=== PATIENT | female | born 1955 | race Caucasian/White ===

== ENCOUNTER → 2016-09-11 | Outpatient (CLI) | payer BC ==
--- NOTE | 2016-09-11 09:19 | CT ---
EXAMINATION TYPE: CT sinus wo con DATE OF EXAM: 09/11/2016 7:05 AM COMPARISON: NONE HISTORY: Sinus blockage for about 2 years with facial pain per patient. Chronic sinusitis per order. CT DLP: 596.5 mGycm. Automated Exposure Control for Dose Reduction was Utilized. TECHNIQUE: CT scan of the sinuses is performed without contrast, axial images are obtained, coronal r eformatted images are also reviewed. FINDINGS there is mild to moderate mucosal thickening involving maxillary sinuses bilaterally. There is mild mucosal thickening involving anterior left sphenoid sinus. There is patchy web-like opacifica tion throughout the right sphenoid sinus . There is moderate mucosal thickening involving ethmoid sin uses bilaterally. There is mild mucosal thickening involving inferior frontal sinuses. The ostiomeata l complex is blocked bilaterally by antral mucosal thickening. Nasal septum is deviated to right of m idline along posterior inferior aspect. Visualized portion of mastoid air cells show no abnormal opacification. The globes are intact bilate rally. IMPRESSION: Fairly moderate chronic paranasal sinus disease as detailed above with narrowing or block ing of both ostiomeatal complexes noted, acute sinus disease right sphenoid sinus level is suspected.
== END | disposition home or self-care (01) ==
LOC: RADCTMAIN 06:45
PROVIDERS: ATTEND Otolaryngology
DX: J34.89 Other specified disorders of nose and nasal sinuses (principal)
CPT/HCPCS: 70486

== ENCOUNTER 2016-10-30 10:33 | Day surgery (SDC) | payer BC ==
[2016-10-29 08:34] VITALS: BMI 23.1
[~2016-10-30 10:33] MED LIST: DEXAMETHASONE SOD PHOSPHATE 10 MG/ML 1 ML VIAL IV ONE; DEXAMETHASONE SOD PHOSPHATE 4 MG/ML 1 ML VIAL IV ONE; FAMOTIDINE 20 MG/2 ML VIAL IV ONE; HYDROmorphone 1 MG/ML 1 ML SYRINGE IVP PRN; LACTATED RINGERS 1,000 ML IV SCH; MIDAZOLAM 2 MG/2 ML VIAL IV PRN; ONDANSETRON 4 MG/2 ML VIAL IVP ONE; SCOPOLAMINE 1.5MG/72HR PATCH TRANSDERM ONE; ceFAZolin 1,000 MG in DEXTROSE/WATER 1 50ML.BAG IV ONE
[2016-10-30] MEDS ORDERED: LIDOCAINE 1% 20 ML VIAL (10MG/ML) FOR IV START INTRADERMA ONE ×2 (10:50→10:56)
[2016-10-30] MEDS: OXYMETAZOLINE 0.05% NASL SPRAY 15 ML NASAL ONE ×6 (10:52→11:11)
[2016-10-30] MEDS ORDERED: DEXAMETHASONE SOD PHOS (MDV) 100 MG/10 ML VIAL ONE (12:57)
[2016-10-30] MEDS ORDERED: ROCURONIUM BROMIDE 10 MG/ML 10 ML VIAL IV ONE (12:57)
[2016-10-30] MEDS ORDERED: ePHEDrine 50 MG/ML 1 ML AMP ONE (12:57)
[2016-10-30] MEDS ORDERED: NEOSTIGMINE 1 MG/ML 10 ML VIAL ONE (12:57)
[2016-10-30] MEDS ORDERED: PHENYLEPHRINE-0.9% NACL SYG 1 MG/10 ML SYRINGE ONE (12:57)
[2016-10-30] MEDS ORDERED: LIDOCAINE 1% INJ 10MG/ML (20 ML MDV) ONE (12:57)
[2016-10-30] MEDS ORDERED: PROPOFOL 10 MG/ML 20 ML VIAL IV ONE (12:57)
[2016-10-30] MEDS ORDERED: GLYCOPYRROLATE 0.2 MG/ML 2 ML VIAL ONE (12:57)
[2016-10-30] MEDS ORDERED: MIDAZOLAM 2 MG/2 ML VIAL ONE (12:57)
[2016-10-30] MEDS ORDERED: fentaNYL (PF) 50 MCG/ML 2 ML AMP ONE (12:57)
[2016-10-30] MEDS ORDERED: BACITRACIN 500 UNIT/GM OINT 28.4 GM TUBE TOPICAL ONE (13:29)
[2016-10-30] MEDS ORDERED: LIDOCAINE 1%-EPI 1:100,000 20 ML VIAL SUBMUCOSAL ONE (13:29)
--- NOTE | 2016-10-30 14:13 | P.OP ---
Date of Procedure: 10/30/16 Preoperative Diagnosis: Deviated nasal septum Inferior turbinate hypertrophy Chronic sinusitis Postoperative Diagnosis: Same Procedure(s) Performed: Septoplasty Outfractured and submucous resection inferior turbinates Bilateral endoscopic sinus surgery including bilateral maxillary antrostomy with removal of tissue from exercise sinuses, bilateral anterior and posterior ethmoidectomy, balloon sinus plasty of the bilateral sphenoid and bilateral frontal sinuses Anesthesia: KENISHA Surgeon: Saud Santana Estimated Blood Loss (ml): 25 Pathology: other (Nasal septal bone and cartilage and sinus contents) Condition: stable Disposition: PACU Indications for Procedure: Is a 61-year-old white female whose had difficulties with chronic nasal congestion and nasal airway obstruction chronic postnasal drainage and recurrent sinus infections. Computed tomography scan does show diffuse mucosal thickening throughout the sinuses. Operative Findings: Septum is deviated to the right the inferior turbinates are hypertrophied, mucosal thickening in the ethmoid sinuses throughout. Mild thickening of the frontal and sphenoid sinuses. There was mucosal thickening as well as small polyps in the maxillary sinuses bilaterally Description of Procedure: The patient was brought in the operative suite and placed in a supine position. The patient underwent induction of general anesthesia with oral endotracheal intubation without difficulty. The orbits were in the operating field for monitoring throughout the case and the computed tomography scan was on the computer screen for review throughout the case also. The patient was prepped and draped in usual aseptic fashion. 1% lidocaine with 1 100,000 epinephrine was infused submucosally both sides nasal septum. While this was taking vasoconstrictive effect the inferior turbinates were infractured with [place] elevator partial submucous resection inferior turbinates was performed using Coblation device to ablate a portion submucosal soft tissue. The inferior turbinates were then outfractured with [place] elevator. A left hemitransfixion incision was made and mucoperichondrial flap on left elevated. Bony cartilaginous junction was disarticulated and mucoperiosteal flap on the right was elevated. Bony nasal septal deformities were removed with Juan forceps and an inferior cartilaginous strip was removed leaving a full 1.5 cm caudal strut. Checking intranasally this corrected the nasoseptal deformities and the hemitransfixion incision was closed running 4-0 chromic suture. 0 endoscopic evaluation was performed bilaterally. Beginning on the left the middle turbinate was medialized with the [place] elevator. Maxillary ostium on the left was located with a ballpoint probe and infundibulotomy was performed followed by uncinectomy with the microdebrider. Maxillary ostium was opened at the expense the anterior and posterior fontanelle taking care anteriorly not to injure the lacrimal bone. 30 endoscope was used to evaluate the macular sinus with small polyps removed with giraffe forceps. Anterior posterior ethmoidectomy then performed with microdebrider from anterior posterior to the level skull base with the roof the anterior ethmoid air cells cleaned with up- biting [place] forceps. Balloon sinus plasty was then performed with the entellus light guided system of the frontal and sphenoid sinus with exploration of the sinuses and findings as above. Once this completed attention was turned to the right where the procedures were followed as they were on the left including medialization middle turbinate infundibulotomy uncinectomy max antrostomy with removal of tissue from exercise anterior posterior ethmoidectomy and balloon sinus plasty of the frontal and sphenoid sinuses. A pledget of standard nasal pore nasal dressing was placed and middle meatus under direct visualization bilaterally. Bilateral Michael airway splints coated bacitracin ointment were placed in nasal cavities and sutured trans-septally of 4-0 nylon suture. The patient was then allowed to emerge from general anesthesia having tolerated procedure well and was extubated in the operating suite and transferred to postop recovery area in satisfactory condition.
[2016-10-30 14:32] VITALS: TEMP 97.2
[2016-10-30 14:35] VITALS: RESP 16
[2016-10-30 15:45] VITALS: BP 116/70; PULSE 79
== END 2016-10-30 15:57 | disposition home or self-care (01) ==
LOC: OR 10:33
PROVIDERS: ATTEND Otolaryngology
DX: J34.2 Deviated nasal septum (principal); J34.3 Hypertrophy of nasal turbinates; J32.9 Chronic sinusitis, unspecified; J33.8 Other polyp of sinus; Z88.0 Allergy status to penicillin; Z91.018 Allergy to other foods
CPT/HCPCS: 88305; 88300; 30140; 30520; 31267; 31255; 31296; 31297; C1726; J2250; J1100 ×2; J2710; J2405; J2001; J3010; J0690; J2370; J2704

== ENCOUNTER → 2018-10-21 | Outpatient (CLI) | payer MEDICARE, BC ==
--- NOTE | 2018-10-21 08:13 | MM ---
Reason for exam: screening (asymptomatic). Baseline mammogram. History: Patient is postmenopausal. Physical Findings: Nurse did not find any significant physical abnormalities on exam. MG Screening Mammo w CAD Bilateral CC and MLO view(s) were taken. The breast tissue is heterogeneously dense. This may lower the sensitivity of mammography. Benign calcifications in the right breast. No suspicious abnormality. These results were verbally communicated with the patient and result sheet given to the patient on 10/21/18. ASSESSMENT: Benign, BI-RAD 2 RECOMMENDATION: Routine screening mammogram of both breasts in 1 year.
--- NOTE | 2018-10-21 09:45 | BD ---
EXAMINATION TYPE: Axial Bone Density DATE OF EXAM: 10/21/2018 COMPARISON: NONE CLINICAL HISTORY: Postmenopausal female. Osteoporosis screening. Height: 62.5 Weight: 135 FRAX RISK QUESTIONS: Alcohol (3 or more units per day): no Family History (Parent hip fracture): no Glucocorticoids (More than 3mos): no (Ex: prednisone, prednisolone, methylprednisolone, dexamethasone, and hydrocortisone). History of Fracture in Adulthood: wrist Secondary Osteoporosis: 1. Type 1 Diabetes: no 2. Hyperthyroidism: no 3. Menopause before 45: no 4. Malnutrition: no 5. Chronic liver disease: no Rheumatoid Arthritis: no Current Tobacco Use: no RISK FACTORS HISTORY OF: History of Wrist Fracture: yes, right When: about 4 months ago Family History of Osteoporosis: no Active: yes Diet low in dairy products/other sources of calcium: no Postmenopausal woman: yes Take estrogen and/or progesterone medications: no Lost more than 2 inches in height since high school: unsure, states height was once about 64 inches Frequent falls: no Poor Health: no Hyperparathyroidism: no Adrenal Insufficiency: no MEDICATIONS: Thyroid Medications: no Osteoporosis Medications: no Additional Medications: Additional History: EXAM MEASUREMENTS: Bone mineral densitometry was performed using the Spireon System. Bone mineral density as measured about the Lumbar spine is: ----- L1-L4(G/cm2): 1.288 T Score Values are as follows: ----- L2: 1.0 ----- L3: 0.4 ----- L4: 1.0 ----- L1-L4: 0.9 Bone mineral density BASELINE Bone mineral density about the R hip (g/cm2): 0.755 Bone mineral density about the L hip (g/cm2): 0.707 T Score values are as follows: -----R Neck: -2.0 -----L Neck: -2.4 -----R Total: -2.0 -----L Total: -2.5 Bone mineral density BASELINE IMPRESSION: Osteopenia (T Score between -2.5 and -1). Values approach osteoporosis. There is slightly increased risk of fracture and the patient may be considered for treatment. Re-Screen 2-5 years. NOTE: T-SCORE=SD OF THE YOUNG ADULT MEAN.
== END ==
LOC: RADMAMWWP 06:53
PROVIDERS: ATTEND Family Medicine
DX: Z12.31 Encounter for screening mammogram for malignant neoplasm of breast (principal); M81.0 Age-related osteoporosis without current pathological fracture; Z78.0 Asymptomatic menopausal state
CPT/HCPCS: 77067; 77080

== ENCOUNTER 2021-10-02 10:24 | Day surgery (SDC) | payer MEDICARE, BC ==
[2021-09-28 10:21] VITALS: BMI 23.1
[~2021-10-02 10:24] MED LIST changes: -DEXAMETHASONE SOD PHOSPHATE 10 MG/ML 1 ML VIAL IV ONE; -DEXAMETHASONE SOD PHOSPHATE 4 MG/ML 1 ML VIAL IV ONE; -FAMOTIDINE 20 MG/2 ML VIAL IV ONE; -HYDROmorphone 1 MG/ML 1 ML SYRINGE IVP PRN; +LIDOCAINE 1% (10MG/ML) FOR IV START INTRADERMA PRN; -MIDAZOLAM 2 MG/2 ML VIAL IV PRN; -ONDANSETRON 4 MG/2 ML VIAL IVP ONE; -SCOPOLAMINE 1.5MG/72HR PATCH TRANSDERM ONE; -ceFAZolin 1,000 MG in DEXTROSE/WATER 1 50ML.BAG IV ONE
[2021-10-02 10:44] VITALS: RESP 16; TEMP 98.6
[2021-10-02] MEDS ORDERED: PROPOFOL 10 MG/ML 20 ML VIAL IV ONE (10:51)
--- NOTE | 2021-10-02 11:08 | P.PCN ---
Date of Procedure: 10/02/21 Procedure(s) Performed: BRIEF HISTORY: Patient is a 66-year-old pleasant white female scheduled for an elective colonoscopy as a part of evaluation of positive cologuard and family history of colon cancer in 2 brothers at age 64 and 74 respectively PROCEDURE PERFORMED: Colonoscopy with snare polypectomy and Endo Clip placement. PREOPERATIVE DIAGNOSIS: Positive cologuard family history of colon cancer. IV sedation per Anesthesia. PROCEDURE: After informed consent was obtained, the patient, was brought into the endoscopy unit. IV sedation was administered by Anesthesia under continuous monitoring. Digital rectal examination was normal. Initially the Olympus CF-160 flexible video colonoscope was then inserted in the rectum, gradually advanced into the cecum without any difficulty. Careful examination was performed as the scope was gradually being withdrawn. Ileocecal valve and the appendiceal orifice were visualized and appeared normal. Prep was excellent. Mucosa of the cecum, ascending colon, transverse colon, descending colon, sigmoid colon, and rectum appeared normal. In the distal rectum just proximal to the dentate line there was a 2.5 cm broad-based polyp that was removed by snare polypectomy followed by Endo Clip placement. Adjacent to this area there was another 1 cm polyp that was removed by snare polypectomy. Retroflexion was performed in the rectum and no lesions were seen. The patient tolerated the procedure well. IMPRESSION: 2.5 cm and 1 cm broad-based distal rectal polyp serous post snare polypectomy followed by Endo Clip placement Rest of the colon appeared normal RECOMMENDATIONS: Findings of this examination were discussed with the patient as well as his family. He was advised to follow with the biopsy results. If the biopsy result adenoma she can have a repeat colonoscopy in 3 years..
[2021-10-02 11:46] VITALS: BP 108/68; PULSE 78
== END 2021-10-02 11:58 | disposition home or self-care (01) ==
LOC: ORWHC2ENDO 10:24
PROVIDERS: ATTEND Internal Medicine Gastroenterology
DX: Z12.11 Encounter for screening for malignant neoplasm of colon (principal); K62.1 Rectal polyp; R19.5 Other fecal abnormalities; Z80.0 Family history of malignant neoplasm of digestive organs; Z88.0 Allergy status to penicillin
CPT/HCPCS: 88305; 45385; J2704; 45382